=== PATIENT | male | born 1960 | race Caucasian/White ===

== ENCOUNTER 2017-06-15 03:32 | Observation (INO) | payer OTHER ==
[2017-06-15] VITALS (9 sets, daily range): BP systolic 110–143; BP diastolic 63–84; PULSE 54–82; RESP 16–20; TEMP 97.7–98.1; O2SAT 97–100
[~2017-06-15 03:32] MED LIST: HYDR-3516 PO; SIMV20TA PO
--- NOTE | 2017-06-15 03:58 | PD ---
HPI Chief Complaint: chest pain Time Seen by Provider: 03:55 Travel History International Travel<30 days: No Contact w/Intl Traveler<30days: No Traveled to known affect area: No History of Present Illness HPI 56-year-old male presents to the emergency department by private transportation the care of family for evaluation of left-sided chest pain that radiates to the left shoulder and awakened him from sleep with a sharp stabbing pain at 2 AM. Patient states the pain resolved spontaneously and then returned and then more recently has become a 6/10 intensity dull discomfort to the left chest. Patient states no shortness of breath;no nausea no vomiting and no referred shoulder arm neck jaw or abdominal pain. Patient has taken no medications prior to arrival to the emergency department and no aspirin use. Patient denies personal history of CAD, hypertension, dyslipidemia, diabetes, or tobaccoism. Patient does not report family history premature onset heart disease. Father with issues associated with CVA. Patient denies any previous evaluation for cardiac disease or for chest pain. Last surgery was April 2016. No recent long distance travel protracted bedrest her surgical procedure. No pleuritic chest pain or shortness of breath or hemoptysis. Patient denies any injury. Patient is able to identify exacerbating or alleviating factors. PFSH Past Medical History Narrative Medical Review of medical record identifies dyslipidemia; nursing notes reviewed Cardiovascular Problems: Yes (CHOL) High Cholesterol: Yes Diminished Hearing: No Social History Alcohol Use: Yes (RARELY) Tobacco Use: No Substance Use: No Allergies-Medications (Allergen,Severity, Reaction): Coded Allergies: penicillin G (Verified Allergy, Severe, 06/15/17) phenobarbital (Verified Allergy, Severe, 06/15/17) vancomycin (Verified Allergy, Severe, 06/15/17) Reported Meds & Prescriptions Reported Meds & Active Scripts Active Review of Systems Except as stated in HPI: all other systems reviewed are Neg Physical Exam Narrative GENERAL: Well-developed well-nourished male in no acute distress no respiratory distress SKIN: Warm and dry. HEAD: Normocephalic. EYES: No scleral icterus. No injection or drainage. NECK: Supple, trachea midline. No JVD or lymphadenopathy. CARDIOVASCULAR: Regular rate and rhythm without murmurs, gallops, or rubs. Chest wall: Nontender to direct palpation. RESPIRATORY: Breath sounds equal bilaterally. No accessory muscle use. GASTROINTESTINAL: Abdomen soft, non-tender, nondistended. MUSCULOSKELETAL: No cyanosis, or edema. BACK: Nontender without obvious deformity. No CVA tenderness. Data Data Last Documented VS Vital Signs Date Time Temp Pulse Resp B/P (MAP) Pulse Ox O2 Delivery O2 Flow Rate FiO2 06/15/17 03:57 100 Room Air 06/15/17 03:55 82 16 122/78 (93) 06/15/17 03:34 98.1 Orders Orders Electrocardiogram (06/15/17 03:55) Basic Metabolic Panel (Bmp) (06/15/17 03:55) Ckmb (Isoenzyme) Profile (06/15/17 03:55) Complete Blood Count With Diff (06/15/17 03:55) Magnesium (Mg) (06/15/17 03:55) Prothrombin Time / Inr (Pt) (06/15/17 03:55) Act Partial Throm Time (Ptt) (06/15/17 03:55) Troponin I (06/15/17 03:55) Chest, Single Ap (06/15/17 03:55) Ecg Monitoring (06/15/17 03:55) Bilateral Bp Monitoring (06/15/17 03:55) Iv Access Insert/Monitor (06/15/17 03:55) Oximetry (06/15/17 03:55) Oxygen Administration (06/15/17 03:55) Aspirin Chew (Aspirin Chew) (06/15/17 04:00) Sodium Chloride 0.9% Flush (Ns Flush) (06/15/17 04:00) Nitroglycerin Sl (Nitrostat Sl) (06/15/17 04:00) Sodium Chlor 0.9% 1000 Ml Inj (Ns 1000 M (06/15/17 04:00) CKMB (06/15/17 04:10) CKMB% (06/15/17 04:10) Labs Laboratory Tests Test 06/15/17 04:10 White Blood Count 7.4 TH/MM3 Red Blood Count 4.24 MIL/MM3 Hemoglobin 13.2 GM/DL Hematocrit 36.8 % Mean Corpuscular Volume 86.7 FL Mean Corpuscular Hemoglobin 31.0 PG Mean Corpuscular Hemoglobin Concent 35.8 % Red Cell Distribution Width 14.0 % Platelet Count 186 TH/MM3 Mean Platelet Volume 7.9 FL Neutrophils (%) (Auto) 65.9 % Lymphocytes (%) (Auto) 20.2 % Monocytes (%) (Auto) 8.7 % Eosinophils (%) (Auto) 4.7 % Basophils (%) (Auto) 0.5 % Neutrophils # (Auto) 4.9 TH/MM3 Lymphocytes # (Auto) 1.5 TH/MM3 Monocytes # (Auto) 0.6 TH/MM3 Eosinophils # (Auto) 0.3 TH/MM3 Basophils # (Auto) 0.0 TH/MM3 CBC Comment DIFF FINAL Differential Comment Prothrombin Time 10.0 SEC Prothromb Time International Ratio 1.0 RATIO Activated Partial Thromboplast Time 24.8 SEC Blood Urea Nitrogen 16 MG/DL Creatinine 0.98 MG/DL Random Glucose 97 MG/DL Calcium Level 8.3 MG/DL Magnesium Level 2.2 MG/DL Sodium Level 142 MEQ/L Potassium Level 3.8 MEQ/L Chloride Level 109 MEQ/L Carbon Dioxide Level 25.6 MEQ/L Anion Gap 7 MEQ/L Estimat Glomerular Filtration Rate 80 ML/MIN Total Creatine Kinase 102 U/L Creatine Kinase MB 1.9 NG/ML Troponin I LESS THAN 0.02 NG/ML MDM Medical Decision Making Medical Screen Exam Complete: Yes Emergency Medical Condition: Yes Medical Record Reviewed: Yes Interpretation(s) EKG normal sinus rhythm rate 67 interventricular conduction delay no acute ST elevation or injury pattern CK not elevated troponin I less than 0.02, not elevated Vital Signs Date Time Temp Pulse Resp B/P (MAP) Pulse Ox O2 Delivery O2 Flow Rate FiO2 06/15/17 03:57 100 Room Air 06/15/17 03:55 82 16 122/78 (93) 98 06/15/17 03:34 98.1 69 16 143/84 (103) 100 Room Air CBC & BMP Diagram 06/15/17 04:10 Calcium Level 8.3 L, Magnesium Level 2.2 CXR: no lobar infiltrate Differential Diagnosis Chest pain, ACS, KS, atypical chest pain, aortic dissection, aneurysm, biliary colic, pancreatitis Narrative Course Patient placed on school lunch monitor with continuous pulse oximetry IV access obtained specimens collected and sent for resulting EKG performed which reveals no acute ST elevation or injury pattern; 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
[2017-06-15] MEDS ORDERED: SODIUM CHLORIDE 0.9% FLUSH 10 ML FLUSH IVF PRN (04:00)
[2017-06-15] MEDS ORDERED: SODIUM CHLOR 0.9% 1000 ML INJ 1,000 ML IV SCH (04:00)
[2017-06-15] MEDS ORDERED: ASPIRIN 81 MG CHEW TAB PO ONE (04:00)
[2017-06-15] MEDS: NITROGLYCERIN 0.4 MG SL 25 TABS/BTL SL SCH ×2 (04:16→07:00)
[2017-06-15 04:24] LABS: AUTOMATED NEUTROPHIL # 4.9 TH/MM3 (1.8-7.7); BASOPHIL % 0.5 % (0.0-2.0); EOSINOPHIL # 0.3 TH/MM3 (0-0.4); EOSINOPHIL % 4.7 % (0.0-4.0); HEMATOCRIT 36.8 % (39.0-51.0); HEMOGLOBIN 13.2 GM/DL (13.0-17.0); LYMPH % 20.2 % (9.0-44.0); LYMPHOCYTE # 1.5 TH/MM3 (1.0-4.8); MEAN CELL VOLUME 86.7 FL (80.0-100.0); MEAN CORPUSCULAR HGB CONC 35.8 % (32.0-36.0); MEAN PLATELET VOLUME 7.9 FL (7.0-11.0); MONO % 8.7 % (0.0-8.0); MONOCYTE # 0.6 TH/MM3 (0-0.9); NEUT % 65.9 % (16.0-70.0); PLATELET COUNT 186 TH/MM3 (150-450); RED BLOOD COUNT 4.24 MIL/MM3 (4.50-5.90); WHITE BLOOD COUNT 7.4 TH/MM3 (4.0-11.0)
[2017-06-15 04:42] LABS: BICARBONATE 25.6 MEQ/L (21.0-32.0); BLOOD UREA NITROGEN 16 MG/DL (7-18); CALCIUM 8.3 MG/DL (8.5-10.1); CHLORIDE 109 MEQ/L (98-107); CREATININE 0.98 MG/DL (0.60-1.30); GLOMERULAR FILTRATION RATE 80 ML/MIN (>89); GLUCOSE,RANDOM 97 MG/DL (74-106); MAGNESIUM 2.2 MG/DL (1.5-2.5); SODIUM (NA) 142 MEQ/L (136-145)
[2017-06-15 04:45] LABS: TROPONIN I LESS THAN 0.02 NG/ML (0.02-0.05)
--- NOTE | 2017-06-15 05:09 | RADRPT ---
EXAM DATE/TIME: 06/15/2017 04:28 [facility] COMPARISON: CHEST SINGLE AP, April 15, 2016, 8:48. INDICATIONS : Chest pain. MEDICAL HISTORY : None. SURGICAL HISTORY : None. ENCOUNTER: Initial ACUITY: 1 day PAIN SCORE: 3/10 LOCATION: Bilateral chest FINDINGS: A single view of the chest demonstrates the lungs to be symmetrically aerated without evidence of mas s, infiltrate or effusion. The cardiomediastinal contours are unremarkable. Osseous structures are intact. CONCLUSION: 1. No active disease. Lee Mcintosh MD on June 15, 2017 at 5:08 Board Certified Radiologist. This report was verified electronically.
[2017-06-15] MEDS ORDERED: SODIUM CHLORIDE 0.9% FLUSH 10 ML FLUSH IV FLUSH PRN (05:15)
[2017-06-15 08:13] LABS: TROPONIN I LESS THAN 0.02 NG/ML (0.02-0.05)
--- NOTE | 2017-06-15 08:47 | HHI.HP ---
[facility] Primary Care Physician Dinesh Lopez MD Chief Complaint Chest pain History of Present Illness This is a 56-year-old male that presents to ED via private vehicle with a complaint of being awoken at 3:00 this morning with chest discomfort. Described as a tightness to the left chest. It was a 5-6 out of 10. Lasted 1 hour. Denies shortness of breath, nausea, or diaphoresis. The discomfort did not radiate. Found nothing to worsen or improve the symptoms. States he has not had this before. Cannot recall ever having prior cardiac workup. Denies recent illness. Denies fevers or chills. Review of Systems General: Patient denies fevers, chills recent, and recent travel HEENT: Patient denies headache, sore throat, difficulty swallowing. Cardiovascular: Has the chest discomfort as mentioned above. Denies sensation of heart beating rapidly or irregularly. No syncope. Denies diaphoresis. Respiratory: Denies shortness of breath or inspirational chest discomfort. Denies coughing wheezing or hemoptysis. GI: Patient denies nausea, vomiting, diarrhea, abdominal pain, bloody stools. Musculoskeletal: Patient denies joint pain or edema. Denies calf pain or edema. Neurovascular: Patient denies numbness, tingling, weakness in extremities. Denies headache. Endocrine: Denies polyuria and polydipsia. Hematologic: Denies easy bruising. Skin: Denies rash or itching. Past Family Social History Allergies: Coded Allergies: penicillin G (Verified Allergy, Severe, 06/15/17) phenobarbital (Verified Allergy, Severe, 06/15/17) vancomycin (Verified Allergy, Severe, 06/15/17) Past Medical History Small bowel obstruction April 2016. Denies hypertension, hyperlipidemia, diabetes, and known CAD. Past Surgical History Small bowel obstruction April 2016. Reported Medications Reported Meds & Active Scripts Active Active Ordered Medications Current Medications Medications (Trade) Dose Ordered Sig/Marilee Route Start Time Stop Time Status Last Admin Sodium Chloride 1,000 ml @ 84 mls/hr [id number] IV 06/15/17 04:00 06/15/17 04:15 (NS Flush) 2 ml UNSCH PRN IV FLUSH 06/15/17 05:15 (NS Flush) 2 ml BID IV FLUSH 06/15/17 09:00 Family History Denies family history of CAD. His father had CVAs. Social History Lifetime nonsmoker. Denies alcohol or illicit drugs. Physical Exam Vital Signs Vital Signs Date Time Temp Pulse Resp B/P (MAP) Pulse Ox O2 Delivery O2 Flow Rate FiO2 06/15/17 07:10 16 98 Room Air 06/15/17 07:10 98 Room Air 06/15/17 07:05 97.9 58 16 110/67 (81) 98 Room Air 06/15/17 07:05 56 16 98 Room Air 06/15/17 05:18 98 21 06/15/17 05:03 98 Room Air 06/15/17 05:02 132/81 (98) 133/81 (98) 06/15/17 03:57 100 Room Air 06/15/17 03:55 82 16 122/78 (93) 98 06/15/17 03:34 98.1 69 16 143/84 (103) 100 Room Air Physical Exam GENERAL: This is a well-nourished, well-developed patient, in no apparent distress. Patient speaks in clear complete sentences. Patient is pleasant. HEENT: Head is atraumatic and normocephalic. Neck is supple without lymphadenopathy and trachea is midline. No JVD or carotid bruits. CARDIOVASCULAR: Regular rate and rhythm without murmurs, gallops, or rubs. RESPIRATORY: Clear to auscultation. Breath sounds equal bilaterally. No wheezes , rales, or rhonchi. Chest wall is nontender. No use of accessory muscles. GASTROINTESTINAL: Abdomen is nontender, nondistended. Abdomen soft. No obvious pulsatile mass or bruit. No CVA tenderness. Strong femoral pulses bilaterally. Normal bowel sounds in all quadrants. MUSCULOSKELETAL: Patient is moving upper and lower extremities freely. No calf tenderness or edema, no Homans sign. Strong pulses in upper and lower extremities. NEUROLOGICAL: Patient is alert and oriented. Cranial nerves 2-12 are grossly intact. No focal deficits and speech is clear. SKIN: No rash and turgor is normal. Laboratory Laboratory Tests Test 06/15/17 04:10 06/15/17 07:11 White Blood Count 7.4 Red Blood Count 4.24 Hemoglobin 13.2 Hematocrit 36.8 Mean Corpuscular Volume 86.7 Mean Corpuscular Hemoglobin 31.0 Mean Corpuscular Hemoglobin Concent 35.8 Red Cell Distribution Width 14.0 Platelet Count 186 Mean Platelet Volume 7.9 Neutrophils (%) (Auto) 65.9 Lymphocytes (%) (Auto) 20.2 Monocytes (%) (Auto) 8.7 Eosinophils (%) (Auto) 4.7 Basophils (%) (Auto) 0.5 Neutrophils # (Auto) 4.9 Lymphocytes # (Auto) 1.5 Monocytes # (Auto) 0.6 Eosinophils # (Auto) 0.3 Basophils # (Auto) 0.0 CBC Comment DIFF FINAL Differential Comment Prothrombin Time 10.0 Prothromb Time International Ratio 1.0 Activated Partial Thromboplast Time 24.8 Blood Urea Nitrogen 16 Creatinine 0.98 Random Glucose 97 Calcium Level 8.3 Magnesium Level 2.2 Sodium Level 142 Potassium Level 3.8 Chloride Level 109 Carbon Dioxide Level 25.6 Anion Gap 7 Estimat Glomerular Filtration Rate 80 Total Creatine Kinase 102 90 Creatine Kinase MB 1.9 Troponin I LESS THAN 0.02 LESS THAN 0.02 Result Diagram: 06/15/1740906/15/17 0410 Imaging Last 48 hours Impressions Chest X-Ray 06/15/17 0355 Signed Impressions: Service Date/Time: Thursday, June 15, 2017 04:28 - CONCLUSION: 1. No active disease. Lee Mcintosh MD Course EKGs have sinus bradycardia without significant ST segment depressions or elevations. Inverted T waves in lead 3. Caprini VTE Risk Assessment Caprini VTE Risk Assessment: No/Low Risk (score <= 1) Caprini Risk Assessment Model Point Value = 1 Point Value = 2 Point Value = 3 Point Value = 5 Age 41-60 Minor surgery BMI > 25 kg/m2 Swollen legs Varicose veins or History of unexplained or recurrent spontaneous Oral contraceptives or hormone replacement Sepsis (< 1 month) Serious lung disease, including pneumonia (< 1 month) Abnormal pulmonary function Acute myocardial infarction Congestive heart failure (< 1 month) History of inflammatory bowel disease Medical patient at bed rest Age 61-74 Arthroscopic surgery Major open surgery (> 45 min) Laparoscopic surgery (> 45 min) Malignancy Confined to bed (> 72 hours) Immobilizing plaster cast Central venous access Age >= 75 History of VTE Family history of VTE Factor V Leiden Prothrombin [id number] Lupus anticoagulant Anticardiolipin antibodies Elevated serum homocysteine Heparin-induced thrombocytopenia Other congenital or acquired thrombophilia Stroke (< 1 month) Elective arthroplasty Hip, pelvis, or leg fracture Acute spinal cord injury (< 1 month) Prophylaxis Regimen Total Risk Factor Score Risk Level Prophylaxis Regimen 0-1 Low Early ambulation 2 Moderate Order ONE of the following: *Sequential Compression Device (SCD) *Heparin 5000 units SQ BID 3-4 Higher Order ONE of the following medications: *Heparin 5000 units SQ TID *Enoxaparin/Lovenox 40 mg SQ daily (WT < 150 kg, CrCl > 30 mL/min) *Enoxaparin/Lovenox 30 mg SQ daily (WT < 150 kg, CrCl > 10-29 mL/min) *Enoxaparin/Lovenox 30 mg SQ BID (WT < 150 kg, CrCl > 30 mL/min) AND/OR *Sequential Compression Device (SCD) 5 or more Highest Order ONE of the following medications: *Heparin 5000 units SQ TID (Preferred with Epidurals) *Enoxaparin/Lovenox 40 mg SQ daily (WT < 150 kg, CrCl > 30 mL/min) *Enoxaparin/Lovenox 30 mg SQ daily (WT < 150 kg, CrCl > 10-29 mL/min) *Enoxaparin/Lovenox 30 mg SQ BID (WT < 150 kg, CrCl > 30 mL/min) AND *Sequential Compression Device (SCD) Assessment and Plan Assessment and Plan * Chest pain: Patient has had first 2 sets of cardiac enzymes and EKGs for ruling out purposes. The second set was 6 hours after onset of his symptoms. He was seen by Dr. Valle cardiology and the chest and center. Symptoms do not sound cardiac in nature but we will get a Avni protocol ETT and if that is nonischemic he will be charged and instructed to follow-up with his PCP. Return to ED for interval issues. Patient is stable at this time. He is agreeable to this plan. Galen Telles Jun 15, 2017 08:47
[2017-06-15] MEDS ORDERED: SODIUM CHLORIDE 0.9% FLUSH 10 ML FLUSH IV FLUSH SCH (09:00)
--- NOTE | 2017-06-15 10:11 | TR ---
Date Performed: 06/15/2017 Time Performed: 09:28:55 DOCTOR: Lottie Valle DRUG LIST: CLINICAL HISTORY: REASON FOR TEST: REASON FOR ENDING: OBSERVATION: CONCLUSION: JAMES PROTOCOL. NO CP. TEST STOPPED AFTER EXCEEDING GOAL HR SECONDARY TO SOB AND LEG FATIGUE.Maximum TO=498 Max HR Achieved=97.0% Maximum KI=350/62 Total Exercise Time=9:38 COMMENTS:
--- NOTE | 2017-06-15 13:06 | RADRPT ---
EXAM DATE/TIME: 06/15/2017 11:08 [facility] COMPARISON: No previous studies available for comparison. INDICATIONS : Left chest pain. Angina DOSE: 27.2 mCi Tc99m Myoview at stress 8.6 mCi Tc99m Myoview at rest REST HEART RATE: 96 BPM TARGET HEART RATE: 141 BPM MAX HEART RATE: 148 BPM REST BLOOD PRESSURE: 110/64 mmHg MAX BLOOD PRESSURE: 140/78 mmHg EJECTION FRACTION: 55% MEDICAL HISTORY : Hypercholesterolemia. SURGICAL HISTORY : None. ENCOUNTER: Initial ACUITY: 1 day PAIN SCALE: 5/10 LOCATION: Left chest TECHNIQUE: The patient underwent upright treadmill exercise in the chest pain center. Continuous ECG tracing wa s monitored during stress. Gated SPECT imaging was performed after stress, and conventional SPECT im aging was performed at rest. The examination was performed on a SPECT/CT scanner, both attenuation-c orrected and non-corrected datasets were reviewed. FINDINGS: DISTRIBUTION: The maximum perfused segment at stress is in the anterior lateral wall. PERFUSION STUDY: The pattern of perfusion at stress is within normal limits. GATED STUDY: There is intact wall motion and thickening without hypokinetic or dyskinetic segments. CONCLUSION: Normal examination. RISK CATEGORY: Low (<1% Annual Mortality Rate) Geovanni Ram MD on June 15, 2017 at 13:02 Board Certified Radiologist. This report was verified electronically.
--- NOTE | 2017-06-15 13:15 | HHI.DCPOC ---
Discharge Care Plan Diagnosis: (1) Chest pain Goals to Promote Your Health * To prevent worsening of your condition and complications * To maintain your health at the optimal level Directions to Meet Your Goals Take your medications as prescribed Follow your dietary instruction Follow activity as directed Keep your appointments as scheduled Take your immunizations and boosters as scheduled If your symptoms worsen call your PCP, if no PCP go to Urgent Care Center or Emergency Room Smoking is Dangerous to Your Health. Avoid second hand smoke Call the 24-hour hour crisis hotline for domestic abuse at Galen Telles Jun 15, 2017 13:15
--- NOTE | 2017-06-15 16:13 | EKG ---
Date Performed: 06/15/2017 Time Performed: 03:41:14 PTAGE: 56 years EKG: Sinus rhythm BORDERLINE LEFT AXIS DEVIATION MODERATE INTRAVENTRICULAR CONDUCTION DELAY BORDERLINE ECG Since PREVIOUS TRACING , no significant change noted PREVIOUS TRACIN04/15/2016 08.07 DOCTOR: Lottie Valle Interpretating Date/Time 06/15/2017 16:12:02
--- NOTE | 2017-06-15 16:14 | EKG ---
Date Performed: 06/15/2017 Time Performed: 07:11:16 PTAGE: 56 years EKG: SINUS BRADYCARDIA BORDERLINE LEFT AXIS DEVIATION MINIMAL VOLTAGE CRITERIA FOR LVH, CONSIDER NORMAL VARIANT BORDERLINE ECG Since PREVIOUS TRACING , no significant change noted PREVIOUS TRACIN06/15/2017 03.41 DOCTOR: Lottie Valle Interpretating Date/Time 06/15/2017 16:13:02
--- NOTE | 2017-06-15 16:15 | TR ---
Date Performed: 06/15/2017 Time Performed: 11:31:48 DOCTOR: Lottie Valle DRUG LIST: CLINICAL HISTORY: REASON FOR TEST: REASON FOR ENDING: OBSERVATION: CONCLUSION: NUC ETT, JAMES PROTOCOL. NO CP OR SOB. Maximum JD=107 % Max HR Achieved=89.0% Maximu m MY=942/78 Total Exercise Time=8:10 COMMENTS:
== END 2017-06-15 14:53 | disposition home or self-care (01) ==
LOC: NEPC 03:32 → NEDA 05:16 → NEPGCP 10:07
PROVIDERS: ADMIT Internal Medicine Cardiovascular Disease; ATTEND Internal Medicine Cardiovascular Disease
DX: R07.9 Chest pain, unspecified (principal); Z82.3 Family history of stroke; E78.5 Hyperlipidemia, unspecified; R00.1 Bradycardia, unspecified; R94.31 Abnormal electrocardiogram [ECG] [EKG]
CPT/HCPCS: 71045; 78452; 80048; 82550; 82552; 83735; 84484; 85025; 85610; 85730; 93005; 93017; 96360; 96361; 99285; A9502; G0378; J7030